=== PATIENT | male | born 1995 | race Caucasian/White ===

== ENCOUNTER 2018-04-12 23:59 | Emergency (ER) | payer OTHER ==
[2018-04-13 00:18] VITALS: BP 116/65
[2018-04-13] MEDS ORDERED: HYDROCODONE/ACETAMINOPHEN 5-325 MG (6 TAB/ER DISP) PO PRN (00:34)
[2018-04-13] MEDS ORDERED: SILVER SULFADIAZINE 1% CREAM 400 GM TP ONE (00:34)
--- NOTE | 2018-04-13 00:34 | ER Document Report ---
ED Skin Rash/Insect Bite/Abscs - General Chief Complaint: Skin Problem Stated Complaint: SKIN PROBLEM Time Seen by Provider: 04/13/18 00:27 Mode of Arrival: Ambulatory Information source: Patient Notes: Patient is a 22-year-old male who presents to the ER today for sunburn to the shoulders, upper back and upper chest 1 day. Patient states he was out in the sun today with very little sunscreen on. Patient has not tried anything to relieve the pain. He states that there are starting to be some blisters to the left shoulder. TRAVEL OUTSIDE OF THE [place] IN LAST 30 DAYS: No - Related Data Allergies/Adverse Reactions: No Known Allergies Allergy (Unverified 04/13/18 00:13) Past Medical History - General Information source: Patient - Social History Smoking Status: Never Smoker Family History: Reviewed & Not Pertinent Review of Systems - Review of Systems Constitutional: No symptoms reported EENT: No symptoms reported Cardiovascular: No symptoms reported Respiratory: No symptoms reported Gastrointestinal: No symptoms reported Genitourinary: No symptoms reported Male Genitourinary: No symptoms reported Musculoskeletal: No symptoms reported Skin: See HPI Hematologic/Lymphatic: No symptoms reported Neurological/Psychological: No symptoms reported Physical Exam - Vital signs Vitals: Temp Pulse Resp BP Pulse Ox 97.9 F 66 14 116/65 98 04/13/18 00:16 04/13/18 00:16 04/13/18 00:16 04/13/18 00:16 04/13/18 00:16 - Notes Notes: PHYSICAL EXAMINATION: GENERAL: Uncomfortable appearing, but in no acute distress. HEAD: Atraumatic, normocephalic. EYES: Pupils equal round and reactive to light, extraocular movements intact, sclera anicteric, conjunctiva are normal. NECK: Normal range of motion, supple without lymphadenopathy LUNGS: CTAB and equal. No wheezes rales or rhonchi. HEART: Regular rate and rhythm without murmurs EXTREMITIES: Normal range of motion, no pitting edema. No cyanosis. NEUROLOGICAL: Cranial nerves grossly intact. Normal sensory/motor exams. PSYCH: Normal mood, normal affect. SKIN: Warm, Dry, normal turgor, bright red erythematous sunburn to the upper back, shoulders, upper arms and upper chest, tender to palpation, with tiny blisters starting to the left posterior shoulder Course - Re-evaluation Re-evalutation: 04/13/18 01:23 Patient was sent home with silver sulfadiazine cream from here and given something for pain for second-degree sunburn. - Vital Signs Vital signs: Temp Pulse Resp BP Pulse Ox 97.9 F 66 14 116/65 98 04/13/18 00:16 04/13/18 00:16 04/13/18 00:16 04/13/18 00:16 04/13/18 00:16 Discharge - Discharge Clinical Impression: Second degree sunburn Condition: Stable Disposition: HOME, SELF-CARE Additional Instructions: Return immediately for any new or worsening symptoms. Follow up with primary care provider, call tomorrow to make followup appointment. Apply the burn cream at least twice daily for 5 days. Forms: Return to Work
== END 2018-04-13 00:45 | disposition home or self-care (01) ==
LOC: ER 23:59
DX: L55.1 Sunburn of second degree (principal)
CPT/HCPCS: 99282; J3490